=== PATIENT | female | born 1960 ===

== ENCOUNTER 2018-02-18 11:07 | Emergency (ER) | payer OTHER ==
[2018-02-18 11:22] VITALS: RESP 20
--- NOTE | 2018-02-18 12:13 | C.PDOC ---
History Of Present Illness 58 year old female presents to the ED complaining of left sided pain, headache, and swollen ankle status post fall that occurred this morning around 0800. 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 Patient rates her pain as 7-8/10. She had an ice pack treatment at school with mild relief. Patient denies any tingling, numbness, or loss of consciousness. Time Seen by Provider: 02/18/18 11:36 Chief Complaint (Nursing): Lower Extremity Problem/Injury History Per: Patient History/Exam Limitations: no limitations Onset/Duration Of Symptoms: Hrs Current Symptoms Are (Timing): Still Present Pain Scale Rating Of: 7 - Ankle/Foot Description Of Injury: Fell Alleviating Factor(s): Ice Therapy Past Medical History Reviewed: Historical Data, Nursing Documentation, Vital Signs Vital Signs: Last Vital Signs Temp 97.5 F L 02/18/18 11:18 Pulse 75 02/18/18 11:18 Resp 20 02/18/18 11:18 BP 132/84 02/18/18 11:18 Pulse Ox 100 02/18/18 12:57 - Medical History PMH: Hyperthyroidism Surgical History: Appendectomy Family History: States: Diabetes - Social History Hx Tobacco Use: No Hx Alcohol Use: No Hx Substance Use: No Review Of Systems Except As Marked, All Systems Reviewed And Found Negative. Musculoskeletal: Positive for: Shoulder Pain (Left sided ), Leg Pain (Left), Other (Left hip and left ankle pain ) Neurological: Positive for: Headache. Negative for: Weakness, Numbness Physical Exam - Physical Exam Appears: Non-toxic Skin: Normal Color, Warm Head: Atraumatic, Normacephalic, No Other (No hematoma ) Eye(s): bilateral: Normal Inspection, PERRL Ear(s): Bilateral: Normal Oral Mucosa: Moist Neck: Supple Chest: Symmetrical Cardiovascular: Rhythm Regular Respiratory: Normal Breath Sounds, No Rales, No Rhonchi, No Wheezing Gastrointestinal/Abdominal: Soft, No Tenderness, No Distention, No Guarding Back: Normal Inspection Extremity: Tenderness (Tenderness to left lateral malleolous ankle, tenderness to right and left shoulders ) Neurological/Psych: Oriented x3 Gait: Steady ED Course And Treatment O2 Sat by Pulse Oximetry: 100 (RA) Pulse Ox Interpretation: Normal Medical Decision Making Medical Decision Making: Impression: Ankle and head contusion Orders: Tylenol 975mg PO Ibuprofen 600 mg PO Cold pack treatment CT head W/O contrast Xray left ankle Xray shoulders On reevaluation, patient reports feeling better except for her headache. CT head scan was ordered. Disposition Counseled Patient/Family Regarding: Studies Performed, Diagnosis, Need For Followup - Disposition Referrals: Alcides Merino MD [Medical Doctor] - Disposition: HOME/ ROUTINE Disposition Time: 14:02 Condition: STABLE Additional Instructions: Ms. Ramirez, thank you for letting us take care of you today. Return to the ER if your symptoms worsen, or if any problems. Take the medication listed below as prescribed. Follow up with Dr. Merino in 3 or 4 days for a re-evaluation. Prescriptions: Ibuprofen [Motrin] 1 tab PO Q8 PRN #30 tab PRN Reason: Pain, Moderate (4-7) Instructions: Contusion (DC), Minor Head Injury, Ankle Sprain Forms: [employer] (Ukrainian) Print Language: [place] - POA Present On Arrival: None - Clinical Impression Clinical Impression: Multiple contusions, Ankle sprain - Scribe Statement The provider has reviewed the documentation as recorded by the Scribe (Isamar Kelly) Provider Attestation: All medical record entries made by the Scribe were at my direction and personally dictated by me. I have reviewed the chart and agree that the record accurately reflects my personal performance of the history, physical exam, medical decision making, and the department course for this patient. I have also personally directed, reviewed, and agree with the discharge instructions and disposition.
--- NOTE | 2018-02-18 13:40 | CT ---
PROCEDURE: CT HEAD WITHOUT CONTRAST. HISTORY: Fell hit head w/ very bad throbbing headache COMPARISON: None available. TECHNIQUE: Axial computed tomography images were obtained through the head/brain without intravenous contrast. Radiation dose: Total exam DLP = 772.56 mGy-cm. This CT exam was performed using one or more of the following dose reduction techniques: Automated exposure control, adjustment of the mA and/or kV according to patient size, and/or use of iterative reconstruction technique. FINDINGS: HEMORRHAGE: No intracranial hemorrhage. BRAIN: No mass effect or edema. No atrophy or chronic microvascular ischemic changes. VENTRICLES: Unremarkable. No hydrocephalus. CALVARIUM: Unremarkable. PARANASAL SINUSES: Unremarkable as visualized. No significant inflammatory changes. MASTOID AIR CELLS: Unremarkable as visualized. No inflammatory changes. OTHER FINDINGS: None. IMPRESSION: No evidence of acute intracranial hemorrhage intracranial collection mass effect or midline shift. No evidence of skull fracture.
[2018-02-18 14:16] VITALS: BP 118/72; PULSE 61; TEMP 97.6; O2SAT 99
--- NOTE | 2018-02-18 18:35 | RAD ---
PROCEDURE: Radiographs of the Left Shoulder HISTORY: left shoulder pain s/p fall COMPARISON: No prior. FINDINGS: BONES: Normal. No fracture. JOINTS: Normal. Glenohumeral and acromioclavicular joints preserved. No osteoarthritis. SOFT TISSUES: Small calcified tendinitis noted adjacent to the left humeral head. OTHER FINDINGS: None. IMPRESSION: No evidence of acute fracture or dislocation. Small calcification noted adjacent to the left humeral head likely represent calcified tendinitis.
--- NOTE | 2018-02-18 18:53 | RAD ---
PROCEDURE: Left Ankle Radiographs. HISTORY: left ankle trauma; left ankle pain COMPARISON: None FINDINGS: BONES: Normal. No fracture. JOINTS: Normal. No osteoarthritis. Ankle mortise maintained. Talar dome intact SOFT TISSUES: Mild soft tissue swelling. OTHER FINDINGS: None. IMPRESSION: No evidence of acute fracture or dislocation.
== END 2018-02-18 14:15 | disposition home or self-care (01) ==
LOC: C.ER 11:07
DX: S93.402A Sprain of unspecified ligament of left ankle, initial encounter (principal); T14.8XXA Other injury of unspecified body region, initial encounter; W18.30XA Fall on same level, unspecified, initial encounter